=== PATIENT | male | born 1950 | race American Indian/Alaskan Native ===

== ENCOUNTER 2020-12-10 20:46 | Emergency (ER) | payer SELFPAY ==
[2020-12-10 23:11] VITALS: BP 171/77
[2020-12-10] MEDS ORDERED: TAMSULOSIN 0.4 MG CAP PO ONE (23:26)
[2020-12-10 23:43] LABS: Bacteria,Urine 1+ /HPF (Negative); Bilirubin,Urine NEG (Negative); Blood,Urine MOD (Negative); Color,Urine Yellow (Yellow); Mucus,Urine FEW /HPF; Protein,Urine <15 mg/dL mg/dL (Negative); Urobilinogen,Urine < 2.0 mg/dL (<2.0)
[2020-12-10 23:51] LABS: Basophils % (Auto) 0.3 % (0.0-1.8); Hematocrit 40.4 % (35.5-45.6); Hemoglobin 13.3 gm/dl (11.8-15.2); Lymphocytes # (Auto) 0.8 K/mm3 (1.2-5.4); Lymphocytes % (Auto) 7.3 % (13.4-35.0); Mean Corpuscular HGB Conc 33 % (32-34); Mean Corpuscular Volume 96 fl (84-94); Monocytes # (Auto) 0.3 K/mm3 (0.0-0.8); Monocytes % (Auto) 2.8 % (0.0-7.3); Platelet Count 288 K/mm3 (140-440); Red Blood Count 4.22 M/mm3 (3.65-5.03); Red Cell Distribution Width 12.4 % (13.2-15.2)
--- NOTE | 2020-12-11 00:06 | Event Note ---
ED Screening Note Date of service: 12/11/20 ED Screening Note: Patient is a 70-year-old -[place] male with a history of BPH who presents to the ED with urinary retention for the last 2 days, worse in the last 8 hours. Patient states that he has not voided any urine for the last 12 hours and now complains of suprapubic pressure and pain. Patient denies fever, chills, testicular pain, chest pain, shortness of breath, nausea, vomiting, back pain, hematuria or chest pain and shortness of breath. This initial assessment/diagnostic orders/clinical plan/treatment(s) is/are subject to change based on patients health status, clinical progression and re- assessment by fellow clinical providers in the ED. Further treatment and workup at subsequent clinical providers discretion. Patient/guardian urged not to elope from the ED as their condition may be serious if not clinically assessed and managed. Initial orders include: In and out catheter; CBC, CMP, UA, Flomax
[2020-12-11 00:10] LABS: Alanine Aminotransferase 24 units/L (7-56); Albumin 4.6 g/dL (3.9-5); BUN/Creatinine Ratio 24; Blood Urea Nitrogen 19 mg/dL (9-20); Calcium 9.5 mg/dL (8.4-10.2); Hemolysis Index 9
== END 2020-12-11 02:40 | disposition left against medical advice (07) ==
LOC: ED 20:46
DX: R33.9 Retention of urine, unspecified (principal); Z53.21 Procedure and treatment not carried out due to patient leaving prior to being seen by health care provider
CPT/HCPCS: 36415; 80053; 81001; 85025